=== PATIENT | female | born 1935 | race African-American/Black ===

== ENCOUNTER 2017-10-27 12:32 | Inpatient (IN) | payer OTHER, MEDICAID ==
[~2017-10-27] VITALS: Ht 165.1 cm; Wt 64.4 kg
[2017-10-27] MEDS ORDERED: DEXTROSE 50% WATER 50ML SYRINGE IV ONE (13:15)
[2017-10-27] MEDS ORDERED: ATROPINE SULFATE 1MG/10ML SYR IV ONE (13:30)
[2017-10-27 13:39] LABS: BASOPHILS % 0.5 % (0.0-2.0); HEMATOCRIT. 38.4 % (36.0-48.0); HEMOGLOBIN. 12.3 g/dL (12.0-16.0); LYMPHOCYTES % 8.3 % (20.0-50.0); MEAN CORPUSCULAR HEMOGLOBIN 28.3 pg (28.0-32.0); MEAN CORPUSCULAR VOLUME 88.3 fL (81.0-99.0); MEAN PLATELET VOLUME 7.4 fl (7.4-10.4); NEUTROPHILS % 83.2 % (40.0-76.0); PLATELET 241 x1000/uL (130-400); RED BLOOD CELL COUNT 4.35 mill/uL (4.2-5.4); RED CELL DISTRIBUTION WIDTH 15.8 % (11.6-14.6)
[2017-10-27 13:45] LABS: INR 1.2; PROTHROMBIN TIME 12.3 sec (9.4-11.6)
[2017-10-27 13:50] LABS: CHLORIDE 99 mEq/L (98-107)
[2017-10-27 13:56] LABS: TROPONIN I 0.04 ng/mL (0.00-0.04)
[2017-10-27] MEDS ORDERED: LEVOFLOXACIN 750MG PREMIX 150 ML IV ONE (14:15)
[2017-10-27 14:32] LABS: BG BASE EXCESS -2.8 mmol/L (-2.0-2.0); BG CARBOXYHEMOGLOBIN 1.1 % (0.5-1.5); BG DEOXYHEMOGLOBIN 8.6 % (0.0-5.0); BG FRACTION INSPIRED OXYGEN 32; BG HCO3 ACT 24.1 mmol/L (22.0-26.0); BG METHEMOGLOBIN 0.4 % (0.0-1.5); BG OXYGEN SATURATION 91.3 % (92.0-98.5); BG OXYHEMOGLOBIN 89.9 % (94.0-97.0); BG PCO2 50.6 mmHg (35.0-45.0); BG PH 7.295 (7.350-7.450); BG PO2 71.8 mmHg (75.0-100.0); BG SAMPLE SITE RIGHT RADIAL; BG TOTAL HEMOGLOBIN 12.5 g/dL (12.0-18.0); BG VENT MODE NASAL CANNULA
[2017-10-27] MEDS ORDERED: IPRATROPIUM/ALBUTEROL 0.5-3(2.5)MG/3ML NEB INH PRN (14:45)
[2017-10-27] MEDS ORDERED: DOCUSATE SODIUM 100MG CAPSULE PO PRN (14:45)
[2017-10-27] MEDS ORDERED: ONDANSETRON HCL 4MG/2ML VIAL IV PRN (14:45)
[2017-10-27] MEDS ORDERED: GUAIFENESIN 200MG/10ML SUGAR FREE UDC PO PRN (14:45)
[2017-10-27] MEDS ORDERED: CLONIDINE 0.1MG TABLET PO PRN (14:45)
[2017-10-27] MEDS ORDERED: LORAZEPAM 0.5MG TABLET PO PRN (16:30)
[2017-10-27 16:35] VITALS: BP 118/50
[2017-10-27 16:58] VITALS: BP 110/70
[2017-10-27] MEDS ORDERED: ALBU18HF2 IH (17:14)
[2017-10-27] MEDS ORDERED: IPRA4AER IH (17:16)
[2017-10-27] MEDS ORDERED: LABE100T PO ×2 (17:18)
[2017-10-27] MEDS ORDERED: FLUT16SP15 BOTHNSTRLS (17:21)
[2017-10-27] MEDS ORDERED: NPH,100V SQ (17:33)
[2017-10-27] MEDS ORDERED: HYDR100T26 PO (17:35)
[2017-10-27] MEDS ORDERED: AMLO10TA80 PO (17:35)
[2017-10-27] MEDS ORDERED: POLY30DR OP (17:37)
[2017-10-27 18:00] VITALS: BP 116/57
[2017-10-27] MEDS: PIPERACILLIN/TAZ 2.25G PREMIX 50 ML IV SCH (18:13)
[2017-10-27] MEDS: ENOXAPARIN 30MG/0.3ML SYR SUBCUT SCH (18:13)
[2017-10-27] MEDS ORDERED: VANCOMYCIN 1 G PREMIX 200 ML IV NR (18:30)
[2017-10-27 20:00] VITALS: BP 103/42
[2017-10-27 22:00] VITALS: BP 116/51
[2017-10-27 23:25] LABS: CREATINE KINASE MB FRACTION 7.7 ng/mL (0.5-3.6); TROPONIN I 0.04 ng/mL (0.00-0.04)
[2017-10-28] VITALS (12 sets, daily range): BP systolic 108–141; BP diastolic 45–65
[2017-10-28] MEDS: PIPERACILLIN/TAZ 2.25G PREMIX 50 ML IV SCH ×3 (02:06→20:52)
[2017-10-28 07:07] LABS: BASOPHILS % 0.9 % (0.0-2.0); EOSINOPHILS % 0.1 % (0.0-5.0); HEMOGLOBIN. 10.7 g/dL (12.0-16.0); MEAN CORPUSCULAR HEMOGLOBIN 28.2 pg (28.0-32.0); MEAN CORPUSCULAR VOLUME 89.4 fL (81.0-99.0); MEAN PLATELET VOLUME 7.5 fl (7.4-10.4); MONOCYTES % 9.5 % (2.0-8.0); NEUTROPHILS % 77.5 % (40.0-76.0); PLATELET 209 x1000/uL (130-400); RED BLOOD CELL COUNT 3.81 mill/uL (4.2-5.4); RED CELL DISTRIBUTION WIDTH 15.7 % (11.6-14.6)
[2017-10-28 07:34] LABS: CHLORIDE 100 mEq/L (98-107)
[2017-10-28 08:03] LABS: CREATINE KINASE 249 IU/L (26-192); HDL CHOLESTEROL 79 mg/dL (40-59); LDL CHOLESTEROL 22 mg/dL (5-100); TROPONIN I 0.05 ng/mL (0.00-0.04)
[2017-10-28 08:09] LABS: BG BASE EXCESS -1.2 mmol/L (-2.0-2.0); BG CARBOXYHEMOGLOBIN 0.7 % (0.5-1.5); BG DEOXYHEMOGLOBIN 8.9 % (0.0-5.0); BG HCO3 ACT 26.7 mmol/L (22.0-26.0); BG METHEMOGLOBIN 0.1 % (0.0-1.5); BG OXYHEMOGLOBIN 90.3 % (94.0-97.0); BG PCO2 60.1 mmHg (35.0-45.0); BG PH 7.265 (7.350-7.450); BG PO2 68.6 mmHg (75.0-100.0); BG SAMPLE SITE LEFT BRACHIAL; BG TOTAL HEMOGLOBIN 11.9 g/dL (12.0-18.0); BG VENT MODE MASK - BIPAP; BG VENT RATE 14 set
[2017-10-28] MEDS: ASPIRIN 81MG EC TABLET PO SCH (08:43)
[2017-10-28] MEDS: AMLODIPINE 10MG TABLET PO SCH (08:43)
[2017-10-28] MEDS: FUROSEMIDE 40MG/4ML VIAL IV SCH (08:43)
[2017-10-28 12:20] LABS: BG BASE EXCESS -3.5 mmol/L (-2.0-2.0); BG BILEVEL POS AIRWAY PRESSURE 15/5; BG CARBOXYHEMOGLOBIN 0.6 % (0.5-1.5); BG DEOXYHEMOGLOBIN 4.3 % (0.0-5.0); BG METHEMOGLOBIN 0.4 % (0.0-1.5); BG OXYGEN SATURATION 95.7 % (92.0-98.5); BG OXYHEMOGLOBIN 94.7 % (94.0-97.0); BG PCO2 54.3 mmHg (35.0-45.0); BG PH 7.263 (7.350-7.450); BG PO2 88.7 mmHg (75.0-100.0); BG SAMPLE SITE RIGHT RADIAL; BG TOTAL HEMOGLOBIN 11.9 g/dL (12.0-18.0); BG VENT MODE MASK - BIPAP; BG VENT RATE 18 set
[2017-10-28] MEDS ORDERED: IPRATROPIUM/ALBUTEROL 0.5-3(2.5)MG/3ML NEB HHN PRN (13:00)
[2017-10-28 15:05] LABS: CLARITY URINE CLEAR (CLEAR); COLOR URINE YELLOW (YELLOW); KETONES URINE TRACE (NEGATIVE); LEUKOCYTE ESTERASE URINE NEGATIVE (NEGATIVE); NITRITE URINE NEGATIVE (NEGATIVE); OCCULT BLOOD URINE NEGATIVE (NEGATIVE); PROTEIN URINE 1+ (NEGATIVE); SPECIFIC GRAVITY URINE 1.018 (1.005-1.030); UROBILINOGEN URINE 0.2 E.U./dL (0.2-1.0)
[2017-10-28] MEDS: IPRATROPIUM/ALBUTEROL 0.5-3(2.5)MG/3ML NEB HHN SCH ×2 (15:52→20:26)
[2017-10-28] MEDS ORDERED: VANCOMYCIN 1250MG in DEXTROSE 5% WATER 250ML IV NR (16:00)
[2017-10-28] MEDS: ENOXAPARIN 30MG/0.3ML SYR SUBCUT SCH (16:08)
[2017-10-28] MEDS: ACETAMINOPHEN 325MG TABLET PO PRN (16:23)
[2017-10-28] MEDS ORDERED: DEXTROSE 50% WATER 50ML SYRINGE IV PRN (19:45)
[2017-10-28] MEDS: BLOOD SUGAR DIAGNOSTIC STRIP TEST SCH (20:27)
[2017-10-29] VITALS (11 sets, daily range): BP systolic 92–124; BP diastolic 42–91
[2017-10-29] MEDS: IPRATROPIUM/ALBUTEROL 0.5-3(2.5)MG/3ML NEB HHN SCH ×6 (00:25→20:15)
[2017-10-29] MEDS: PIPERACILLIN/TAZ 2.25G PREMIX 50 ML IV SCH ×2 (05:09→14:03)
[2017-10-29] MEDS: BLOOD SUGAR DIAGNOSTIC STRIP TEST SCH ×4 (06:22→20:53)
[2017-10-29] MEDS: AMLODIPINE 10MG TABLET PO SCH (09:52)
[2017-10-29] MEDS: FUROSEMIDE 40MG/4ML VIAL IV SCH (09:52)
[2017-10-29] MEDS: ASPIRIN 81MG EC TABLET PO SCH (09:52)
[2017-10-29 11:09] LABS: BG BASE EXCESS -3.1 mmol/L (-2.0-2.0); BG CARBOXYHEMOGLOBIN 0.6 % (0.5-1.5); BG DEOXYHEMOGLOBIN 27.5 % (0.0-5.0); BG FRACTION INSPIRED OXYGEN 21; BG METHEMOGLOBIN 0.4 % (0.0-1.5); BG OXYGEN SATURATION 72.2 % (92.0-98.5); BG OXYHEMOGLOBIN 71.5 % (94.0-97.0); BG PCO2 51.8 mmHg (35.0-45.0); BG PH 7.283 (7.350-7.450); BG PO2 38.7 mmHg (75.0-100.0); BG SAMPLE SITE RIGHT BRACHIAL; BG TOTAL HEMOGLOBIN 11.7 g/dL (12.0-18.0); BG VENT MODE ROOM AIR
[2017-10-29 13:53] LABS: BG BASE EXCESS -1.6 mmol/L (-2.0-2.0); BG CARBOXYHEMOGLOBIN 0.5 % (0.5-1.5); BG DEOXYHEMOGLOBIN 13.1 % (0.0-5.0); BG FRACTION INSPIRED OXYGEN 28; BG HCO3 ACT 25.4 mmol/L (22.0-26.0); BG OXYGEN SATURATION 86.8 % (92.0-98.5); BG OXYHEMOGLOBIN 86.4 % (94.0-97.0); BG PCO2 53.4 mmHg (35.0-45.0); BG PH 7.296 (7.350-7.450); BG PO2 55.8 mmHg (75.0-100.0); BG SAMPLE SITE RIGHT RADIAL; BG TOTAL HEMOGLOBIN 11.8 g/dL (12.0-18.0); BG VENT MODE NASAL CANNULA
[2017-10-29 15:33] LABS: CREATINE KINASE MB FRACTION 3.8 ng/mL (0.5-3.6); TROPONIN I 0.03 ng/mL (0.00-0.04)
[2017-10-29] MEDS: ACETAMINOPHEN 325MG TABLET PO PRN (16:47)
[2017-10-29] MEDS: ENOXAPARIN 30MG/0.3ML SYR SUBCUT SCH (17:13)
[2017-10-29] MEDS ORDERED: PIPERACILLIN/TAZOBACTAM 2.25 G in SODIUM CHLORIDE 0.9% 50 ML IV SCH (21:00)
== END 2017-10-29 21:00 | disposition short-term general hospital (02) | DRG 871 ==
LOC: ER 12:32 → SUPCPDRO 14:41 → 3WST 14:43 → EDBEDREQ 14:46 → ENRESERV 15:27
PROVIDERS: ADMIT Hospitalist; ATTEND Hospitalist
PROC: 5A09457 Assistance with Respiratory Ventilation, 24-96 Consecutive Hours, Continuous Positive Airway Pressure (ICD-10-PCS; principal; 2017-10-27)
DX: A41.9 Sepsis, unspecified organism (principal); I50.43 Acute on chronic combined systolic (congestive) and diastolic (congestive) heart failure; N17.9 Acute kidney failure, unspecified; J96.02 Acute respiratory failure with hypercapnia; J96.01 Acute respiratory failure with hypoxia; J18.9 Pneumonia, unspecified organism; I13.0 Hypertensive heart and chronic kidney disease with heart failure and stage 1 through stage 4 chronic kidney disease, or unspecified chronic kidney disease; E11.22 Type 2 diabetes mellitus with diabetic chronic kidney disease; E11.649 Type 2 diabetes mellitus with hypoglycemia without coma; E87.2 Acidosis; J44.0 Chronic obstructive pulmonary disease with (acute) lower respiratory infection; J98.11 Atelectasis; N18.9 Chronic kidney disease, unspecified; E78.5 Hyperlipidemia, unspecified; Z88.2 Allergy status to sulfonamides; Z88.8 Allergy status to other drugs, medicaments and biological substances
CPT/HCPCS: 36415; 36600; 71045; 80053; 80061; 80202; 81003; 82375; 82550; 82553; 82805; 82962; 83036; 83880; 84439; 84443; 84484; 85025; 85379; 85610; 87086; 93005; 93306; 93970; 94640; 94660; 96361; 96365; 96366; 96368; 97162; 97166; 99291; J0461; J1650; J1940; J1956; J2543; J3370; J7050; J7060; J7620